=== PATIENT | male | born 1980 | race Caucasian/White ===

== ENCOUNTER 2022-07-09 10:20 | Outpatient (CLI) | payer OTHER, SELFPAY ==
[2022-07-09 22:04] LABS: Albumin* 5.1 g/dL (3.3-5.0); Chloride* 103 mmol/L (96-114)
[2022-07-09 22:05] LABS: Potassium* 4.7 mmol/L (3.6-5.1); Sodium* 138 mmol/L (135-149)
[2022-07-09 22:07] LABS: Bilirubin Total* 0.2 mg/dL (0.1-1.5); Blood Urea Nitrogen* 11 mg/dL (5-24); Carbon Dioxide* 26 mmol/L (20-32); Cholesterol* 160 mg/dL (90-199); Creatinine* 0.8 mg/dL (0.5-1.5); Estimated Glomerular Filt Rate 113 ml/min; Total Protein* 7.3 g/dL (6.0-8.3)
[2022-07-09 22:08] LABS: Alanine Aminotransferase* 85 U/L (4-50); Alkaline Phosphatase* 76 U/L (40-150); Aspartate Amino Transferase* 49 U/L (12-35); Glucose* 100 mg/dL (60-115); Triglycerides* 124 mg/dL (40-149)
[2022-07-09 22:09] LABS: HDL Cholesterol* 40 mg/dL (>=40); LDL Cholesterol Calculated 95 mg/dL (<100)
[2022-07-09 22:56] LABS: Thyroid Stimulating Hormone* 0.635 uIU/mL (0.270-4.20)
== END 2022-07-09 10:21 | disposition home or self-care (01) ==
PROVIDERS: PCP Family Medicine; Visit Provider Family Medicine
DX: Z00.00 Encounter for general adult medical examination without abnormal findings (principal); E78.5 Hyperlipidemia, unspecified; I10 Essential (primary) hypertension; I21.4 Non-ST elevation (NSTEMI) myocardial infarction; I25.10 Atherosclerotic heart disease of native coronary artery without angina pectoris; K21.9 Gastro-esophageal reflux disease without esophagitis; R79.89 Other specified abnormal findings of blood chemistry
CPT/HCPCS: 80053; 80061; 84443

== ENCOUNTER 2023-10-09 09:08 | Outpatient (CLI) | payer OTHER, SELFPAY | END 2023-10-09 09:09 | disposition home or self-care (01) | PROVIDERS: PCP Physician Assistant Medical; Visit Provider Physician Assistant Medical | DX: E78.2 Mixed hyperlipidemia (principal); I10 Essential (primary) hypertension; R79.89 Other specified abnormal findings of blood chemistry | CPT/HCPCS: 80053; 80061; 84443 ==

== ENCOUNTER 2024-12-22 08:58 | Outpatient (CLI) | payer BC, SELFPAY | END 2024-12-22 08:59 | disposition home or self-care (01) | PROVIDERS: PCP Physician Assistant Medical; Visit Provider Internal Medicine | DX: E78.5 Hyperlipidemia, unspecified (principal); I10 Essential (primary) hypertension | CPT/HCPCS: 80053; 80061 ==